=== PATIENT | male | born 1990 ===

== ENCOUNTER 2017-03-07 06:18 | Emergency (ER) | payer SELFPAY ==
[2017-03-07] MEDS ORDERED: Ketorolac Tromethamine 60 MG/2 ML VIAL ONE (06:36)
== END 2017-03-07 06:58 | disposition home or self-care (01) ==
LOC: ERS 06:18
DX: M54.5 Low back pain (principal); F31.9 Bipolar disorder, unspecified; F17.210 Nicotine dependence, cigarettes, uncomplicated; X50.1XXA Overexertion from prolonged static or awkward postures, initial encounter
CPT/HCPCS: 96372; 99406; J1885

== ENCOUNTER 2017-06-25 19:10 | Emergency (ER) | payer SELFPAY | END 2017-06-25 19:19 | disposition home or self-care (01) | LOC: ERS 19:10 | DX: M54.5 Low back pain (principal); F17.210 Nicotine dependence, cigarettes, uncomplicated | CPT/HCPCS: 99283 ==